=== PATIENT | female | born 2005 | race African-American/Black ===

== ENCOUNTER 2025-07-03 16:10 | Emergency (ER) | payer MEDICAID ==
[~2025-07-03] VITALS: Ht 162.6 cm; Wt 57.0 kg
[2025-07-03 16:12] VITALS: O2SAT 100
[2025-07-03] MEDS: ONDANSETRON 4MG ODT PO ONE (16:32)
[2025-07-03] MEDS: ACETAMINOPHEN 500MG TABLET PO ONE (16:32)
[2025-07-03 16:51] LABS: HEMATOCRIT. 38.9 % (36.0-48.0); HEMOGLOBIN. 13.0 g/dL (12.0-16.0); MEAN PLATELET VOLUME 10.3 fl (7.4-10.4); PLATELET 190 x1000/uL (130-400); RED BLOOD CELL COUNT 4.23 mill/uL (4.2-5.4); RED CELL DISTRIBUTION WIDTH 13.8 % (11.6-14.6)
[2025-07-03] MEDS: SODIUM CHLORIDE 0.9% 1,000 ML IV ONE (17:07)
[2025-07-03] MEDS: MORPHINE SULFATE 4 MG/ML INJ (FOR IV/IM USE) IV ONE (17:07)
[2025-07-03 17:09] LABS: CREATININE 0.8 mg/dL (0.6-1.0); PROTEIN TOTAL 7.7 g/dL (6.0-8.3); UREA NITROGEN BLOOD 7 mg/dL (9-23)
[2025-07-03 17:11] LABS: ASPARTATE AMINOTRANSFERASE 30 IU/L (<34); BILIRUBIN DIRECT 0.4 mg/dL (<=3.0); BILIRUBIN TOTAL 1.1 mg/dL (0.1-1.0)
[2025-07-03 17:15] LABS: HCG SCREEN NEGATIVE
[2025-07-03 17:18] LABS: LYMPHOCYTES % MANUAL 9.0 % (20.0-60.0); MONOCYTES % MANUAL 5.0 % (2.0-8.0); NEUTROPHILS % MANUAL 86.0 % (45.0-75.0); PLATELET ESTIMATE NORMAL
[2025-07-03] MEDS: DICYCLOMINE HCL 10MG CAPSULE PO SCH (17:41)
[2025-07-03] MEDS ORDERED: DICY-18 MT (18:44)
[2025-07-03] MEDS ORDERED: ONDA-239 PO (18:44)
[2025-07-03 19:35] LABS: CLARITY URINE CLOUDY (CLEAR); COLOR URINE YELLOW (YELLOW); GLUCOSE URINE NEGATIVE (NEGATIVE); KETONES URINE 4+ (NEGATIVE); LEUKOCYTE ESTERASE URINE 1+ (NEGATIVE); NITRITE URINE NEGATIVE (NEGATIVE); OCCULT BLOOD URINE 3+ (NEGATIVE); PH URINE >=9.0 (4.5-8.0); PROTEIN URINE 1+ (NEGATIVE); SPECIFIC GRAVITY URINE 1.031 (1.005-1.030); UROBILINOGEN URINE 1.0 E.U./dL (0.2-1.0)
[2025-07-03] MEDS ORDERED: CEPH500C2 MT (19:45)
[2025-07-03 19:48] LABS: BACTERIA URINE 2+; SQUAMOUS EPITHELIAL CELL URINE FEW /lpf (RARE/1+)
[2025-07-03 19:54] VITALS: BP 99/51; PULSE 59; RESP 19; TEMP 36.5; O2SAT 100
== END 2025-07-03 20:00 | disposition home or self-care (01) ==
LOC: ER 16:10 → CANBEDREQ 18:49 → ER 20:00
DX: R10.13 Epigastric pain (principal); R11.2 Nausea with vomiting, unspecified; Z79.899 Other long term (current) drug therapy; Z20.822 Contact with and (suspected) exposure to COVID-19
CPT/HCPCS: 80076; 80048; 81003; 84703; 83690; 83735; 85025; 36415; 93005; 96361; 96374; 99291; Q0162; J2270; J7030; Z7610 ×3; 99285